=== PATIENT | female | born 1940 | race Caucasian/White ===

== ENCOUNTER 2020-09-16 12:43 | Emergency (ER) | payer MEDICARE ==
[2020-09-16] MEDS: Bacitracin/Neomycin/Polymyxin B Oint 0.9 GM U/D Packet TOP ONE (13:42)
--- NOTE | 2020-09-16 13:52 | EDM.PDOC ---
ED HPI GENERAL MEDICAL PROBLEM - General Chief Complaint: Lower Extremity Injury/Pain Stated Complaint: R BIG TOE BLISTER Time Seen by Provider: 09/16/20 13:30 Source of Information: Reports: Patient History Limitations: Reports: No Limitations - History of Present Illness INITIAL COMMENTS - FREE TEXT/NARRATIVE: Dorys is an 80 yo female who presents to the ED with concerns of a blister to her right big toe. She states it was quite large yesterday and had her cousin use a need she wiped with alcohol first. States they got a lot of drainage out of it. States they didn't wipe the blister with alcohol or anything prior to poking it with a needle. Admits to having new sandals. No recent sunburn. No other trauma that she knows of. - Related Data Allergies Allergy/AdvReac Type Severity Reaction Status Date / Time No Known Allergies Allergy Verified 09/16/20 13:35 Home Meds: Home Meds Acetaminophen [Tylenol] 650 mg PO ASDIRECTED PRN 09/16/20 [History] Albuterol [Proventil HFA] 2 puff PO DAILY PRN 09/16/20 [History] Aspirin 81 mg PO DAILY 09/16/20 [History] Cetirizine HCl [Zyrtec] 10 mg PO DAILY 09/16/20 [History] Cholecalciferol (Vitamin D3) [D3 Dots] 2,000 mcg PO DAILY 09/16/20 [History] Famotidine 80 mg PO DAILY 09/16/20 [History] Glimepiride 1 mg PO DAILY 09/16/20 [History] Iron 65 mg PO DAILY 09/16/20 [History] Losartan Potassium 100 mg PO DAILY 09/16/20 [History] Mecobalamin [B-12] 2,000 mcg PO DAILY 09/16/20 [History] Metoprolol Succinate 100 mg PO DAILY 09/16/20 [History] Pioglitazone [Actos] 15 mg PO DAILY 09/16/20 [History] Simvastatin 40 mg PO DAILY 09/16/20 [History] Tiotropium [Spiriva HandiHaler] 1 cap PO DAILY 09/16/20 [History] Triamterene/Hydrochlorothiazid [Triamterene-HCTZ 37.5-25 MG] 37.5 mg PO DAILY 09/16/20 [History] allopurinoL [Zyloprim] 100 mg PO DAILY 09/16/20 [History] Past Medical History HEENT History: Reports: None Cardiovascular History: Reports: None Respiratory History: Reports: COPD Gastrointestinal History: Reports: None Genitourinary History: Reports: None, Chronic Renal Insuffiency Musculoskeletal History: Reports: Arthritis Neurological History: Reports: None Psychiatric History: Reports: None Endocrine/Metabolic History: Reports: Diabetes, Type II Hematologic History: Reports: None Oncologic (Cancer) History: Reports: None - Infectious Disease History Infectious Disease History: Reports: None - Past Surgical History Head Surgeries/Procedures: Reports: None HEENT Surgical History: Reports: None Cardiovascular Surgical History: Reports: None Respiratory Surgical History: Reports: None Female Surgical History: Reports: Cystectomy Endocrine Surgical History: Reports: None Musculoskeletal Surgical History: Reports: None Social & Family History - Family History Family Medical History: No Pertinent Family History - Tobacco Use Tobacco Use Status *Q: Never Tobacco User Second Hand Smoke Exposure: No - Caffeine Use Caffeine Use: Reports: Coffee - Recreational Drug Use Recreational Drug Use: No Review of Systems - Review of Systems Review Of Systems: Comprehensive ROS is negative, except as noted in HPI. Constitutional: Denies: Fever Skin: Reports: Wound ED EXAM, GENERAL - Physical Exam Exam: See Below Exam Limited By: No Limitations General Appearance: Alert, WD/WN, No Apparent Distress Skin Exam: Other (Large blister with serous appearing fluid to the left great anterior aspect of toe. Extends along entire toe. Increased warmth and swelling noted to surrouning tissue and starting to extend up the foot. Tender with palpation. ) Course - Vital Signs Last Recorded V/S: Last Vital Signs Temp 98.7 F 09/16/20 13:11 Pulse 65 09/16/20 13:11 Resp 18 09/16/20 13:11 BP 190/65 H 09/16/20 13:11 Pulse Ox 95 09/16/20 13:11 - Orders/Labs/Meds Orders: Active Orders 24 hr Category Date Time Status CULTURE WOUND [RM] Stat Lab 09/16/20 13:40 Received Meds: Medications Discontinued Medications Generic Name Dose Route Start Last Admin Trade Name Freq PRN Reason Stop Dose Admin Neomycin/Polymyxin/Bacitracin 1 each 09/16/20 13:38 09/16/20 13:42 Bacitracin/Neomycin/Polymyxin B Oint 0.9 Gm U/D Packet TOP 09/16/20 13:39 1 each ONETIME ONE Administration Departure - Departure Time of Disposition: 13:53 Disposition: Home, Self-Care 01 Clinical Impression: Cellulitis of foot Blister of toe of right foot with infection Qualifiers: Encounter type: initial encounter Qualified Code(s): S90.424A - Blister (nonthermal), right lesser toe(s), initial encounter; L08.9 - Local infection of the skin and subcutaneous tissue, unspecified - Discharge Information Instructions: Cellulitis, Adult, [id number], Blisters, Adult Additional Instructions: 1) Keep foot clean and dry for atleast 48 hours 2) Keflex 500mg three times a day for 7 days for concerns of infection 3) Culture obtained and will let know if any concerns with culture results 4) Keep foot elevated whenever sitting to keep fluids out of leg. 5) If any fevers, worsening redness up the leg or any concerns at all, recommend reevaluation. Sepsis Event Note (ED) - Evaluation Sepsis Screening Result: No Definite Risk - Focused Exam Vital Signs: Vital Signs Temp Pulse Resp BP Pulse Ox 09/16/20 13:11 98.7 F 65 18 190/65 H 95 - Problem List & Annotations (1) Blister of toe of right foot with infection SNOMED Code(s): 26764526 Code(s): S90.424A - BLISTER (NONTHERMAL), RIGHT LESSER TOE(S), INITIAL ENCO UNTER; L08.9 - LOCAL INFECTION OF THE SKIN AND SUBCUTANEOUS TISSUE, UNSP Status: Acute Qualifiers: Encounter type: initial encounter Qualified Code(s): S90.424A - Blister (nonthermal), right lesser toe(s), initial encounter; L08.9 - Local infection of the skin and subcutaneous tissue, unspecified (2) Cellulitis of foot SNOMED Code(s): 469271178 Code(s): L03.119 - CELLULITIS OF UNSPECIFIED PART OF LIMB Status: Acute - My Orders Last 24 Hours: My Active Orders 09/16/20 13:40 CULTURE WOUND [RM] Stat - Assessment/Plan Last 24 Hours: My Active Orders 09/16/20 13:40 CULTURE WOUND [RM] Stat Plan: Discussed findings with Dorys. I am concerned of secondary skin infection d/t surrounding increased warmth and redness. Will initiate Keflex, which discussed with pharmacy in regards to poor kidney function. See additional instructions. We did proceed with lancing in a sterile field after appropriate betadine prep. Large amount of serous fluid was removed. Pressure bandage applied with triple antibiotic ointment as well.
== END 2020-09-16 14:00 | disposition home or self-care (01) ==
LOC: CC.ED 12:43
DX: S90.424A Blister (nonthermal), right lesser toe(s), initial encounter (principal); L03.032 Cellulitis of left toe; J44.9 Chronic obstructive pulmonary disease, unspecified; E11.22 Type 2 diabetes mellitus with diabetic chronic kidney disease; N18.9 Chronic kidney disease, unspecified; Z79.899 Other long term (current) drug therapy; Z79.82 Long term (current) use of aspirin; X58.XXXA Exposure to other specified factors, initial encounter
CPT/HCPCS: 87070; 99283